=== PATIENT | female | born 1960 | race Caucasian/White ===

== ENCOUNTER 2021-01-18 13:55 | Inpatient (IN) ==
[2021-01-18] MEDS ORDERED: SODIUM CHLORIDE 0.9% 1,000 ML IV STA (14:26)
[2021-01-18 14:31] LABS: Basophils # 0.1 10*3/uL (0.0-0.2); Basophils % 0.2 % (0.0-0.8); Eosinophils % 0.1 % (0.00-10.9); Hematocrit 38.6 VOL% (35.7-47.0); Hemoglobin 13.3 GM/DL (12.0-16.0); Immature Granulocytes % 0.9 %; Immature Granulocytes Absolute 0.19 #; Lymphocytes # 0.5 10*3/uL (1.4-4.0); Lymphocytes % 2.2 % (21.3-54.2); Mean Corpuscular HGB Conc 34.5 GM/DL (32-36); Mean Corpuscular Volume 86.7 FL (87-102); Mean Platelet Volume 10.8 FL (9.6-12.0); Monocytes % 6.1 % (1.7-12.7); Neutrophils % 90.5 % (38.7-73.9); Platelet Count 144 T/CUMM (130-400); Red Blood Count 4.45 MC/CUMM (3.8-5.5); Red Cell Distribution Width 13.1 % (9.3-17.3); White Blood Count 20.7 T/CUMM (4-12)
[2021-01-18 14:42] LABS: Albumin 2.3 G/DL (3.4-5.0); Bilirubin,Total 0.5 MG/DL (0.2-1.0); Calcium 7.5 MG/DL (8.5-10.1); Osmolality,Calculated 260.8 MOS/KG (273-304); Total Protein 5.9 G/DL (5.0-7.5)
[2021-01-18 15:06] LABS: Bacteria,Urine Many /HPF (Few); Bilirubin,Urine Negative (Negative); Blood, Urine Moderate mg/dL (Negative); Glucose,Urine (UA) 50 mg/dL (Negative); Ketones,Urine 5 mg/dL (Negative); Nitrite,Urine Negative (Negative); Protein,Urine 100 MG/DL; RBC,Urine 30 /HPF (0-4); Squamous Epithelial Cell,Urine Few /HPF (0-10); Urine Appearance CLOUDY (Clear); Urine Color Yellow (Yellow); Urine Specific Gravity 1.017 (1.001-1.035); Urine Urobilinogen < 2.0 EU/DL (0.2-1.0); WBC,Urine 585 /HPF (0-6)
[2021-01-18 15:26] LABS: Lymphocytes 7 % (20-55); Segmented Neutrophils 91 % (50-85); Total Cells Counted 100
[2021-01-18 15:27] LABS: Hypochromasia 1+; Microcytosis 1+
[2021-01-18] MEDS ORDERED: MEROPENEM 500 MG in SODIUM CHLORIDE 0.9% 100 ML IV ONE (16:33)
[2021-01-18] MEDS ORDERED: ONDANSETRON 4 MG/2 ML VIAL IV PRN (17:12)
[2021-01-18] MEDS ORDERED: ACETAMINOPHEN 325 MG TABLET PO PRN (17:12)
[2021-01-18] MEDS ORDERED: SODIUM CHLORIDE 0.45% 1,000 ML IV SCH (17:30)
[2021-01-18] MEDS ORDERED: LOPERAMIDE 2 MG CAPSULE PO PRN (18:59)
[2021-01-18] MEDS ORDERED: SUCRALFATE 1 GM TABLET PO PRN (18:59)
[2021-01-18] MEDS ORDERED: MAGNESIUM HYDROXIDE SUSP 30 ML UDCUP PO PRN (18:59)
[2021-01-18] MEDS ORDERED: POLYETHYLENE GLYCOL POWDER 17 GM PACK PO PRN (18:59)
[2021-01-18] MEDS ORDERED: diphenhydrAMINE CAP 25 MG CAPSULE PO PRN (18:59)
[2021-01-18] MEDS: APIXABAN 5 MG TABLET PO SCH (21:06)
[2021-01-18] MEDS: hydrALAZINE 25 MG TABLET PO SCH (21:06)
[2021-01-18] MEDS: POTASSIUM CHLORIDE 20 MEQ TABLET PO SCH (21:06)
[2021-01-18] MEDS: DOCUSATE SODIUM 100 MG CAPSULE PO SCH (21:06)
[2021-01-18] MEDS: cycloSPORINE OPH EMUL 1 VIAL BOTH EYES SCH (21:07)
[2021-01-18] MEDS: TROSPIUM 20 MG PO SCH (21:07)
[2021-01-18] MEDS: NON-FORMULARY MEDICATION (Cran-Vitc-Mannose-Fos-Bromeln [Uti-Stat] 3,875 mg/30 mL Liquid) PO SCH (21:07)
[2021-01-18] MEDS: MEROPENEM 500 MG in SODIUM CHLORIDE 0.9% 100 ML IV SCH (22:22)
[2021-01-19] MEDS: MEROPENEM 500 MG in SODIUM CHLORIDE 0.9% 100 ML IV SCH ×3 (01:16→16:26)
[2021-01-19 03:28] LABS: Basophils % 0.2 % (0.0-0.8); Eosinophils # 0.1 10*3/uL (0.0-0.87); Eosinophils % 0.4 % (0.00-10.9); Hematocrit 38.4 VOL% (35.7-47.0); Hemoglobin 13.2 GM/DL (12.0-16.0); Immature Granulocytes Absolute 0.18 #; Lymphocytes # 0.7 10*3/uL (1.4-4.0); Lymphocytes % 3.4 % (21.3-54.2); Mean Corpuscular HGB Conc 34.4 GM/DL (32-36); Mean Corpuscular Volume 85.9 FL (87-102); Mean Platelet Volume 11.3 FL (9.6-12.0); Monocytes % 8.2 % (1.7-12.7); Neutrophils % 86.8 % (38.7-73.9); Platelet Count 139 T/CUMM (130-400); Red Blood Count 4.47 MC/CUMM (3.8-5.5); Red Cell Distribution Width 12.9 % (9.3-17.3); White Blood Count 18.9 T/CUMM (4-12)
[2021-01-19 03:52] LABS: Calcium 8.1 MG/DL (8.5-10.1); Osmolality,Calculated 259.6 MOS/KG (273-304); Potassium 4.3 MMOL/L (3.5-5.1)
[2021-01-19 04:10] LABS: Eosinophils 1 % (0-10); Lymphocytes 2 % (20-55); Platelet Estimate Normal; Segmented Neutrophils 94 % (50-85); Total Cells Counted 100
[2021-01-19] MEDS: LEVOTHYROXINE 125 MCG TABLET PO SCH (06:39)
[2021-01-19] MEDS: DESITIN 4OZ/NYSTATIN 15 GRAM MIXTURE PASTE TOP SCH ×2 (08:57→20:39)
[2021-01-19] MEDS: cycloSPORINE OPH EMUL 1 VIAL BOTH EYES SCH ×2 (08:59→20:35)
[2021-01-19] MEDS: LORATADINE 10 MG TABLET PO SCH (09:00)
[2021-01-19] MEDS: DOCUSATE SODIUM 100 MG CAPSULE PO SCH ×2 (09:00→20:35)
[2021-01-19] MEDS: POTASSIUM CHLORIDE 20 MEQ TABLET PO SCH ×2 (09:01→20:34)
[2021-01-19] MEDS: predniSONE 5 MG TABLET PO SCH (09:01)
[2021-01-19] MEDS: hydrALAZINE 25 MG TABLET PO SCH ×2 (09:01→20:35)
[2021-01-19] MEDS: APIXABAN 5 MG TABLET PO SCH ×2 (09:01→20:34)
[2021-01-19] MEDS: allopurinoL 300 MG TABLET PO SCH (09:01)
[2021-01-19] MEDS: PANTOPRAZOLE 40 MG TABLET PO SCH (09:01)
[2021-01-19] MEDS: AZILSARTAN MED CHLORTHALIDONE PO SCH (09:02)
[2021-01-19] MEDS: CALAZIME TOP SCH (09:02)
[2021-01-19] MEDS: SACCHAROMYCES BOULARDII 250 MG PO SCH (09:03)
[2021-01-19] MEDS: [UNRECOGNIZED DRUG - MIXTURE] TOP SCH (09:03)
[2021-01-19] MEDS: NON-FORMULARY MEDICATION (Ascorbic Acid-Vitamin E-Biotin [Hair, Skin, Nails With Biotin] 7 PO SCH (09:03)
[2021-01-19] MEDS: NON-FORMULARY MEDICATION (Cran-Vitc-Mannose-Fos-Bromeln [Uti-Stat] 3,875 mg/30 mL Liquid) PO SCH ×2 (09:03→20:39)
[2021-01-19] MEDS: TROSPIUM 20 MG PO SCH ×2 (09:04→20:39)
[2021-01-19] MEDS: SODIUM CHLORIDE 0.9% 1,000 ML IV SCH (16:26)
[2021-01-19] MEDS: LURASIDONE 80 MG PO SCH (17:34)
[2021-01-20] MEDS: MEROPENEM 500 MG in SODIUM CHLORIDE 0.9% 100 ML IV SCH ×3 (00:15→15:00)
[2021-01-20 04:29] LABS: Basophils % 0.3 % (0.0-0.8); Eosinophils # 0.1 10*3/uL (0.0-0.87); Eosinophils % 0.9 % (0.00-10.9); Hematocrit 39.4 VOL% (35.7-47.0); Hemoglobin 13.5 GM/DL (12.0-16.0); Immature Granulocytes % 1.1 %; Immature Granulocytes Absolute 0.15 #; Lymphocytes # 0.7 10*3/uL (1.4-4.0); Lymphocytes % 5.3 % (21.3-54.2); Mean Corpuscular HGB Conc 34.3 GM/DL (32-36); Mean Corpuscular Volume 86.4 FL (87-102); Mean Platelet Volume 11.1 FL (9.6-12.0); Monocytes % 9.9 % (1.7-12.7); Neutrophils % 82.5 % (38.7-73.9); Platelet Count 147 T/CUMM (130-400); Red Blood Count 4.56 MC/CUMM (3.8-5.5); Red Cell Distribution Width 13.1 % (9.3-17.3); White Blood Count 13.9 T/CUMM (4-12)
[2021-01-20 04:54] LABS: Calcium 8.1 MG/DL (8.5-10.1); Osmolality,Calculated 262.2 MOS/KG (273-304); Potassium 5.1 MMOL/L (3.5-5.1)
[2021-01-20] MEDS ORDERED: MAGNESIUM SULF RIDER 2 GM in PREMIX 1 EACH IV PRN (07:21)
[2021-01-20] MEDS: LEVOTHYROXINE 125 MCG TABLET PO SCH (07:26)
[2021-01-20] MEDS: cycloSPORINE OPH EMUL 1 VIAL BOTH EYES SCH ×2 (08:48→22:21)
[2021-01-20] MEDS: AZILSARTAN MED CHLORTHALIDONE PO SCH (08:51)
[2021-01-20] MEDS: hydrALAZINE 25 MG TABLET PO SCH ×2 (08:51→22:21)
[2021-01-20] MEDS: predniSONE 5 MG TABLET PO SCH (08:52)
[2021-01-20] MEDS: POTASSIUM CHLORIDE 20 MEQ TABLET PO SCH ×2 (08:52→22:21)
[2021-01-20] MEDS: LORATADINE 10 MG TABLET PO SCH (08:52)
[2021-01-20] MEDS: DOCUSATE SODIUM 100 MG CAPSULE PO SCH ×2 (08:52→22:21)
[2021-01-20] MEDS: allopurinoL 300 MG TABLET PO SCH (08:52)
[2021-01-20] MEDS: NON-FORMULARY MEDICATION (Ascorbic Acid-Vitamin E-Biotin [Hair, Skin, Nails With Biotin] 7 PO SCH (12:55)
[2021-01-20] MEDS: CALAZIME TOP SCH (12:55)
[2021-01-20] MEDS: APIXABAN 5 MG TABLET PO SCH ×2 (12:56→22:21)
[2021-01-20] MEDS: NON-FORMULARY MEDICATION (Cran-Vitc-Mannose-Fos-Bromeln [Uti-Stat] 3,875 mg/30 mL Liquid) PO SCH (12:56)
[2021-01-20] MEDS: PANTOPRAZOLE 40 MG TABLET PO SCH (12:59)
[2021-01-20] MEDS: [UNRECOGNIZED DRUG - MIXTURE] TOP SCH (12:59)
[2021-01-20] MEDS: DESITIN 4OZ/NYSTATIN 15 GRAM MIXTURE PASTE TOP SCH ×2 (13:00→22:21)
[2021-01-20] MEDS: SACCHAROMYCES BOULARDII 250 MG PO SCH (13:00)
[2021-01-20] MEDS: TROSPIUM 20 MG PO SCH (13:01)
[2021-01-20] MEDS: SODIUM CHLORIDE 0.9% 1,000 ML IV SCH ×2 (14:56→18:19)
[2021-01-20] MEDS: LURASIDONE 80 MG PO SCH ×2 (17:19→18:19)
[2021-01-21] MEDS: MEROPENEM 500 MG in SODIUM CHLORIDE 0.9% 100 ML IV SCH ×4 (00:21→16:32)
[2021-01-21] MEDS: TROSPIUM 20 MG PO SCH ×3 (01:25→21:16)
[2021-01-21] MEDS: NON-FORMULARY MEDICATION (Cran-Vitc-Mannose-Fos-Bromeln [Uti-Stat] 3,875 mg/30 mL Liquid) PO SCH ×2 (01:25→09:30)
[2021-01-21 03:48] LABS: Basophils # 0.1 10*3/uL (0.0-0.2); Basophils % 0.4 % (0.0-0.8); Eosinophils # 0.3 10*3/uL (0.0-0.87); Hematocrit 40.8 VOL% (35.7-47.0); Hemoglobin 13.4 GM/DL (12.0-16.0); Immature Granulocytes % 1.4 %; Immature Granulocytes Absolute 0.19 #; Lymphocytes # 1.4 10*3/uL (1.4-4.0); Lymphocytes % 10.1 % (21.3-54.2); Mean Corpuscular HGB Conc 32.8 GM/DL (32-36); Mean Corpuscular Volume 89.9 FL (87-102); Mean Platelet Volume 10.9 FL (9.6-12.0); Monocytes % 10.7 % (1.7-12.7); Neutrophils % 75.4 % (38.7-73.9); Platelet Count 182 T/CUMM (130-400); Red Blood Count 4.54 MC/CUMM (3.8-5.5); Red Cell Distribution Width 13.5 % (9.3-17.3)
[2021-01-21 04:07] LABS: Calcium 8.5 MG/DL (8.5-10.1); Osmolality,Calculated 260.1 MOS/KG (273-304); Potassium 5.6 MMOL/L (3.5-5.1)
[2021-01-21] MEDS: LEVOTHYROXINE 125 MCG TABLET PO SCH (06:55)
[2021-01-21] MEDS: allopurinoL 300 MG TABLET PO SCH (09:25)
[2021-01-21] MEDS: APIXABAN 5 MG TABLET PO SCH ×2 (09:25→21:14)
[2021-01-21] MEDS: DESITIN 4OZ/NYSTATIN 15 GRAM MIXTURE PASTE TOP SCH ×2 (09:25→21:56)
[2021-01-21] MEDS: PANTOPRAZOLE 40 MG TABLET PO SCH (09:25)
[2021-01-21] MEDS: DOCUSATE SODIUM 100 MG CAPSULE PO SCH ×2 (09:25→21:17)
[2021-01-21] MEDS: hydrALAZINE 25 MG TABLET PO SCH ×2 (09:25→21:14)
[2021-01-21] MEDS: LORATADINE 10 MG TABLET PO SCH (09:25)
[2021-01-21] MEDS: predniSONE 5 MG TABLET PO SCH (09:25)
[2021-01-21] MEDS: SODIUM CHLORIDE 0.9% 1,000 ML IV SCH ×2 (09:26→21:55)
[2021-01-21] MEDS: NON-FORMULARY MEDICATION (Ascorbic Acid-Vitamin E-Biotin [Hair, Skin, Nails With Biotin] 7 PO SCH (09:28)
[2021-01-21] MEDS: CALAZIME TOP SCH (09:29)
[2021-01-21] MEDS: [UNRECOGNIZED DRUG - MIXTURE] TOP SCH (09:30)
[2021-01-21] MEDS: POTASSIUM CHLORIDE 20 MEQ TABLET PO SCH (09:31)
[2021-01-21] MEDS: SACCHAROMYCES BOULARDII 250 MG PO SCH (09:31)
[2021-01-21] MEDS: AZILSARTAN MED CHLORTHALIDONE PO SCH (09:35)
[2021-01-21] MEDS: cycloSPORINE OPH EMUL 1 VIAL BOTH EYES SCH ×2 (09:35→21:14)
[2021-01-21] MEDS: MAGNESIUM SULF RIDER 4 GM in PREMIX 1 EACH IV PRN (09:49)
[2021-01-21] MEDS: LACTOBACILLUS ACIDOPHILUS/BULGARICUS CAPLET PO SCH (13:52)
[2021-01-21] MEDS: LURASIDONE 80 MG PO SCH ×2 (16:32→21:15)
[2021-01-22] MEDS: MEROPENEM 500 MG in SODIUM CHLORIDE 0.9% 100 ML IV SCH ×3 (01:00→16:11)
[2021-01-22] MEDS: LEVOTHYROXINE 125 MCG TABLET PO SCH (05:37)
[2021-01-22 05:52] LABS: Basophils # 0.1 10*3/uL (0.0-0.2); Basophils % 0.6 % (0.0-0.8); Eosinophils # 0.5 10*3/uL (0.0-0.87); Eosinophils % 4.2 % (0.00-10.9); Hematocrit 38.8 VOL% (35.7-47.0); Hemoglobin 13.1 GM/DL (12.0-16.0); Immature Granulocytes % 1.6 %; Immature Granulocytes Absolute 0.17 #; Lymphocytes # 1.7 10*3/uL (1.4-4.0); Lymphocytes % 15.9 % (21.3-54.2); Mean Corpuscular HGB Conc 33.8 GM/DL (32-36); Mean Corpuscular Volume 88.2 FL (87-102); Mean Platelet Volume 10.2 FL (9.6-12.0); Monocytes % 9.3 % (1.7-12.7); Neutrophils % 68.4 % (38.7-73.9); Platelet Count 228 T/CUMM (130-400); Red Cell Distribution Width 13.3 % (9.3-17.3); White Blood Count 10.9 T/CUMM (4-12)
[2021-01-22 06:09] LABS: Calcium 8.3 MG/DL (8.5-10.1); Osmolality,Calculated 268.2 MOS/KG (273-304); Potassium 4.9 MMOL/L (3.5-5.1)
[2021-01-22] MEDS: cycloSPORINE OPH EMUL 1 VIAL BOTH EYES SCH ×2 (08:24→21:08)
[2021-01-22] MEDS: LACTOBACILLUS ACIDOPHILUS/BULGARICUS CAPLET PO SCH (08:24)
[2021-01-22] MEDS: PANTOPRAZOLE 40 MG TABLET PO SCH (08:24)
[2021-01-22] MEDS: predniSONE 5 MG TABLET PO SCH (08:24)
[2021-01-22] MEDS: SPIRONOLACTONE 25 MG TABLET PO SCH (08:24)
[2021-01-22] MEDS: DOCUSATE SODIUM 100 MG CAPSULE PO SCH ×2 (08:24→21:09)
[2021-01-22] MEDS: APIXABAN 5 MG TABLET PO SCH ×2 (08:24→21:08)
[2021-01-22] MEDS: hydrALAZINE 25 MG TABLET PO SCH ×2 (08:24→21:08)
[2021-01-22] MEDS: allopurinoL 300 MG TABLET PO SCH (08:24)
[2021-01-22] MEDS: LORATADINE 10 MG TABLET PO SCH (08:24)
[2021-01-22] MEDS: AZILSARTAN MED CHLORTHALIDONE PO SCH (08:25)
[2021-01-22] MEDS: DESITIN 4OZ/NYSTATIN 15 GRAM MIXTURE PASTE TOP SCH ×2 (08:25→21:08)
[2021-01-22] MEDS: TROSPIUM 20 MG PO SCH ×2 (08:25→21:10)
[2021-01-22] MEDS: NEBIVOLOL 5 MG TABLET PO SCH (13:30)
[2021-01-22] MEDS ORDERED: TUBERCULIN SKIN TEST 0.1 ML SYRINGE INTRADERM ONE (14:52)
[2021-01-22] MEDS: LURASIDONE 80 MG PO SCH (16:11)
[2021-01-22] MEDS: SODIUM CHLORIDE 0.9% 1,000 ML IV SCH (16:55)
[2021-01-23] MEDS: MEROPENEM 500 MG in SODIUM CHLORIDE 0.9% 100 ML IV SCH ×2 (01:00→09:13)
[2021-01-23 05:39] LABS: Basophils # 0.1 10*3/uL (0.0-0.2); Basophils % 0.6 % (0.0-0.8); Eosinophils # 0.6 10*3/uL (0.0-0.87); Eosinophils % 5.5 % (0.00-10.9); Hematocrit 41.1 VOL% (35.7-47.0); Hemoglobin 13.4 GM/DL (12.0-16.0); Immature Granulocytes % 1.5 %; Immature Granulocytes Absolute 0.17 #; Lymphocytes # 2.3 10*3/uL (1.4-4.0); Lymphocytes % 20.4 % (21.3-54.2); Mean Corpuscular HGB Conc 32.6 GM/DL (32-36); Mean Corpuscular Volume 90.5 FL (87-102); Mean Platelet Volume 10.1 FL (9.6-12.0); Monocytes % 8.6 % (1.7-12.7); Neutrophils % 63.4 % (38.7-73.9); Platelet Count 307 T/CUMM (130-400); Red Blood Count 4.54 MC/CUMM (3.8-5.5); Red Cell Distribution Width 13.2 % (9.3-17.3); White Blood Count 11.2 T/CUMM (4-12)
[2021-01-23 05:55] LABS: Calcium 8.8 MG/DL (8.5-10.1); Osmolality,Calculated 265.4 MOS/KG (273-304); Potassium 4.5 MMOL/L (3.5-5.1)
[2021-01-23] MEDS: LEVOTHYROXINE 125 MCG TABLET PO SCH (06:28)
[2021-01-23] MEDS: allopurinoL 300 MG TABLET PO SCH (09:09)
[2021-01-23] MEDS: hydrALAZINE 25 MG TABLET PO SCH ×2 (09:09→20:55)
[2021-01-23] MEDS: APIXABAN 5 MG TABLET PO SCH ×2 (09:10→20:55)
[2021-01-23] MEDS: NEBIVOLOL 5 MG TABLET PO SCH (09:10)
[2021-01-23] MEDS: LORATADINE 10 MG TABLET PO SCH (09:10)
[2021-01-23] MEDS: DOCUSATE SODIUM 100 MG CAPSULE PO SCH ×2 (09:10→20:55)
[2021-01-23] MEDS: predniSONE 5 MG TABLET PO SCH (09:10)
[2021-01-23] MEDS: PANTOPRAZOLE 40 MG TABLET PO SCH (09:10)
[2021-01-23] MEDS: LACTOBACILLUS ACIDOPHILUS/BULGARICUS CAPLET PO SCH (09:10)
[2021-01-23] MEDS: AZILSARTAN MED CHLORTHALIDONE PO SCH (09:10)
[2021-01-23] MEDS: cycloSPORINE OPH EMUL 1 VIAL BOTH EYES SCH ×2 (09:13→20:55)
[2021-01-23] MEDS: TROSPIUM 20 MG PO SCH ×2 (09:13→22:22)
[2021-01-23] MEDS: SODIUM CHLORIDE 0.9% 1,000 ML IV SCH ×2 (12:53→20:56)
[2021-01-23] MEDS: MAGNESIUM SULF RIDER 4 GM in PREMIX 1 EACH IV PRN (14:50)
[2021-01-23] MEDS: LURASIDONE 80 MG PO SCH (17:05)
[2021-01-23] MEDS: POLYETHYLENE GLYCOL POWDER 17 GM PACK PO SCH (17:39)
[2021-01-23] MEDS ORDERED: MAGNESIUM SULF RIDER 2 GM in PREMIX 1 EACH IV ONE (18:44)
[2021-01-23] MEDS: ALBUMIN 25% 25 GM in PREMIX 1 EACH IV SCH (20:55)
[2021-01-24] MEDS: LEVOTHYROXINE 125 MCG TABLET PO SCH (05:24)
[2021-01-24] MEDS: ALBUMIN 25% 25 GM in PREMIX 1 EACH IV SCH ×3 (05:37→21:19)
[2021-01-24 06:03] LABS: Basophils # 0.1 10*3/uL (0.0-0.2); Basophils % 0.6 % (0.0-0.8); Eosinophils # 0.6 10*3/uL (0.0-0.87); Eosinophils % 5.8 % (0.00-10.9); Hematocrit 39.7 VOL% (35.7-47.0); Hemoglobin 12.8 GM/DL (12.0-16.0); Immature Granulocytes % 1.3 %; Immature Granulocytes Absolute 0.13 #; Lymphocytes # 2.4 10*3/uL (1.4-4.0); Lymphocytes % 23.5 % (21.3-54.2); Mean Corpuscular HGB Conc 32.2 GM/DL (32-36); Mean Corpuscular Volume 91.1 FL (87-102); Mean Platelet Volume 9.9 FL (9.6-12.0); Monocytes % 8.5 % (1.7-12.7); Neutrophils % 60.3 % (38.7-73.9); Platelet Count 345 T/CUMM (130-400); Red Blood Count 4.36 MC/CUMM (3.8-5.5); Red Cell Distribution Width 13.1 % (9.3-17.3); White Blood Count 10.1 T/CUMM (4-12)
[2021-01-24 06:26] LABS: Albumin 2.5 G/DL (3.4-5.0); Bilirubin,Total 1.3 MG/DL (0.2-1.0); Calcium 9.1 MG/DL (8.5-10.1); Osmolality,Calculated 264.4 MOS/KG (273-304); Potassium 4.5 MMOL/L (3.5-5.1); Total Protein 6.1 G/DL (6.4-8.2)
[2021-01-24] MEDS: SODIUM CHLORIDE 0.9% 1,000 ML IV SCH ×2 (08:35→17:18)
[2021-01-24] MEDS: APIXABAN 5 MG TABLET PO SCH ×2 (08:36→21:19)
[2021-01-24] MEDS: hydrALAZINE 25 MG TABLET PO SCH (08:36)
[2021-01-24] MEDS: NEBIVOLOL 5 MG TABLET PO SCH (08:36)
[2021-01-24] MEDS: cycloSPORINE OPH EMUL 1 VIAL BOTH EYES SCH ×2 (08:36→21:19)
[2021-01-24] MEDS: allopurinoL 300 MG TABLET PO SCH (08:36)
[2021-01-24] MEDS: PANTOPRAZOLE 40 MG TABLET PO SCH (08:36)
[2021-01-24] MEDS: LACTOBACILLUS ACIDOPHILUS/BULGARICUS CAPLET PO SCH (08:36)
[2021-01-24] MEDS: POLYETHYLENE GLYCOL POWDER 17 GM PACK PO SCH (08:36)
[2021-01-24] MEDS: DOCUSATE SODIUM 100 MG CAPSULE PO SCH ×2 (08:36→21:20)
[2021-01-24] MEDS: predniSONE 5 MG TABLET PO SCH (08:37)
[2021-01-24] MEDS: AZILSARTAN MED CHLORTHALIDONE PO SCH (08:37)
[2021-01-24] MEDS: LORATADINE 10 MG TABLET PO SCH (08:37)
[2021-01-24] MEDS: TROSPIUM 20 MG PO SCH ×2 (08:37→21:20)
[2021-01-24] MEDS ORDERED: LORazepam 2 MG/1 ML VIAL IV ONE (12:30)
[2021-01-24] MEDS ORDERED: traMADol 50 MG TABLET PO PRN (14:24)
[2021-01-24] MEDS: LURASIDONE 80 MG PO SCH (17:17)
[2021-01-24] MEDS: LIDOCAINE 5% PATCH TRANSDERM SCH (17:18)
[2021-01-25 05:07] LABS: Basophils # 0.1 10*3/uL (0.0-0.2); Basophils % 0.8 % (0.0-0.8); Eosinophils # 0.5 10*3/uL (0.0-0.87); Eosinophils % 5.5 % (0.00-10.9); Hematocrit 38.7 VOL% (35.7-47.0); Hemoglobin 12.7 GM/DL (12.0-16.0); Immature Granulocytes % 1.4 %; Immature Granulocytes Absolute 0.12 #; Lymphocytes # 2.2 10*3/uL (1.4-4.0); Lymphocytes % 25.7 % (21.3-54.2); Mean Corpuscular HGB Conc 32.8 GM/DL (32-36); Mean Platelet Volume 9.6 FL (9.6-12.0); Monocytes % 6.7 % (1.7-12.7); Neutrophils % 59.9 % (38.7-73.9); Platelet Count 344 T/CUMM (130-400); Red Blood Count 4.35 MC/CUMM (3.8-5.5); Red Cell Distribution Width 12.9 % (9.3-17.3); White Blood Count 8.6 T/CUMM (4-12)
[2021-01-25 05:34] LABS: Albumin 3.6 G/DL (3.4-5.0); Bilirubin,Total 0.7 MG/DL (0.2-1.0); Calcium 9.1 MG/DL (8.5-10.1); Osmolality,Calculated 266.2 MOS/KG (273-304); Potassium 4.1 MMOL/L (3.5-5.1); Total Protein 6.6 G/DL (6.4-8.2)
[2021-01-25] MEDS: SODIUM CHLORIDE 0.9% 1,000 ML IV SCH (06:09)
[2021-01-25] MEDS: ALBUMIN 25% 25 GM in PREMIX 1 EACH IV SCH ×3 (06:09→20:02)
[2021-01-25] MEDS: LEVOTHYROXINE 125 MCG TABLET PO SCH (06:09)
[2021-01-25] MEDS: cycloSPORINE OPH EMUL 1 VIAL BOTH EYES SCH ×2 (09:44→20:02)
[2021-01-25] MEDS: POLYETHYLENE GLYCOL POWDER 17 GM PACK PO SCH ×2 (09:44→20:00)
[2021-01-25] MEDS: LIDOCAINE 5% PATCH TRANSDERM SCH (09:45)
[2021-01-25] MEDS: DOCUSATE SODIUM 100 MG CAPSULE PO SCH ×3 (09:45→20:33)
[2021-01-25] MEDS: LORATADINE 10 MG TABLET PO SCH (09:45)
[2021-01-25] MEDS: LACTOBACILLUS ACIDOPHILUS/BULGARICUS CAPLET PO SCH (09:45)
[2021-01-25] MEDS: SPIRONOLACTONE 25 MG TABLET PO SCH (09:45)
[2021-01-25] MEDS: NEBIVOLOL 5 MG TABLET PO SCH (09:45)
[2021-01-25] MEDS: allopurinoL 300 MG TABLET PO SCH (09:45)
[2021-01-25] MEDS: PANTOPRAZOLE 40 MG TABLET PO SCH (09:45)
[2021-01-25] MEDS: TROSPIUM 20 MG PO SCH ×2 (09:46→20:33)
[2021-01-25] MEDS: AZILSARTAN MED CHLORTHALIDONE PO SCH (09:53)
[2021-01-25] MEDS: LURASIDONE 80 MG PO SCH (16:22)
[2021-01-26] MEDS: SODIUM CHLORIDE 0.9% 1,000 ML IV SCH ×3 (04:27→16:47)
[2021-01-26] MEDS: ALBUMIN 25% 25 GM in PREMIX 1 EACH IV SCH ×3 (04:29→20:41)
[2021-01-26] MEDS: LEVOTHYROXINE 125 MCG TABLET PO SCH (05:32)
[2021-01-26] MEDS: PANTOPRAZOLE 40 MG TABLET PO SCH (09:29)
[2021-01-26] MEDS: LACTOBACILLUS ACIDOPHILUS/BULGARICUS CAPLET PO SCH (09:29)
[2021-01-26] MEDS: allopurinoL 300 MG TABLET PO SCH (09:29)
[2021-01-26] MEDS: NEBIVOLOL 5 MG TABLET PO SCH (09:30)
[2021-01-26] MEDS: LORATADINE 10 MG TABLET PO SCH (09:30)
[2021-01-26] MEDS: DOCUSATE SODIUM 100 MG CAPSULE PO SCH ×2 (09:30→20:55)
[2021-01-26] MEDS: LIDOCAINE 5% PATCH TRANSDERM SCH (09:36)
[2021-01-26] MEDS: cycloSPORINE OPH EMUL 1 VIAL BOTH EYES SCH ×2 (09:38→20:55)
[2021-01-26] MEDS: AZILSARTAN MED CHLORTHALIDONE PO SCH (09:39)
[2021-01-26] MEDS: TROSPIUM 20 MG PO SCH ×2 (09:40→20:55)
[2021-01-26] MEDS: LURASIDONE 80 MG PO SCH (16:47)
[2021-01-27] MEDS: SODIUM CHLORIDE 0.9% 1,000 ML IV SCH ×3 (02:14→21:54)
[2021-01-27] MEDS: ALBUMIN 25% 25 GM in PREMIX 1 EACH IV SCH ×3 (05:21→21:35)
[2021-01-27] MEDS: LEVOTHYROXINE 125 MCG TABLET PO SCH (05:52)
[2021-01-27 06:19] LABS: Basophils # 0.1 10*3/uL (0.0-0.2); Basophils % 0.8 % (0.0-0.8); Eosinophils # 0.5 10*3/uL (0.0-0.87); Eosinophils % 4.9 % (0.00-10.9); Hematocrit 36.6 VOL% (35.7-47.0); Hemoglobin 12.1 GM/DL (12.0-16.0); Immature Granulocytes % 1.1 %; Lymphocytes # 1.7 10*3/uL (1.4-4.0); Lymphocytes % 18.5 % (21.3-54.2); Mean Corpuscular HGB Conc 33.1 GM/DL (32-36); Mean Corpuscular Volume 89.5 FL (87-102); Mean Platelet Volume 9.9 FL (9.6-12.0); Monocytes % 6.4 % (1.7-12.7); Neutrophils % 68.3 % (38.7-73.9); Platelet Count 293 T/CUMM (130-400); Red Blood Count 4.09 MC/CUMM (3.8-5.5); Red Cell Distribution Width 12.9 % (9.3-17.3); White Blood Count 9.2 T/CUMM (4-12)
[2021-01-27 06:56] LABS: Albumin 3.9 G/DL (3.4-5.0); Bilirubin,Total 0.7 MG/DL (0.2-1.0); Osmolality,Calculated 263.4 MOS/KG (273-304); Potassium 3.6 MMOL/L (3.5-5.1); Total Protein 6.5 G/DL (6.4-8.2)
[2021-01-27] MEDS: AZILSARTAN MED CHLORTHALIDONE PO SCH (08:18)
[2021-01-27] MEDS: TROSPIUM 20 MG PO SCH ×2 (08:18→20:12)
[2021-01-27] MEDS: PANTOPRAZOLE 40 MG TABLET PO SCH (08:19)
[2021-01-27] MEDS: DOCUSATE SODIUM 100 MG CAPSULE PO SCH ×2 (08:19→20:12)
[2021-01-27] MEDS: LACTOBACILLUS ACIDOPHILUS/BULGARICUS CAPLET PO SCH (08:19)
[2021-01-27] MEDS: NEBIVOLOL 5 MG TABLET PO SCH (08:19)
[2021-01-27] MEDS: LIDOCAINE 5% PATCH TRANSDERM SCH (08:20)
[2021-01-27] MEDS: LORATADINE 10 MG TABLET PO SCH (08:20)
[2021-01-27] MEDS: allopurinoL 300 MG TABLET PO SCH (08:25)
[2021-01-27] MEDS: cycloSPORINE OPH EMUL 1 VIAL BOTH EYES SCH ×2 (08:25→21:35)
[2021-01-27] MEDS ORDERED: POLYETHYLENE GLYCOL POWDER 255 GM BOTTLE PO ONE ×2 (15:00→18:00)
[2021-01-27] MEDS: LURASIDONE 80 MG PO SCH (16:14)
[2021-01-27] MEDS ORDERED: MAGNESIUM CITRATE 300 ML BOTTLE PO ONE (20:45)
[2021-01-28] MEDS ORDERED: MAGNESIUM CITRATE 300 ML BOTTLE PO ONE (05:00)
[2021-01-28] MEDS: LEVOTHYROXINE 125 MCG TABLET PO SCH (05:16)
[2021-01-28] MEDS: ALBUMIN 25% 25 GM in PREMIX 1 EACH IV SCH ×3 (05:16→20:27)
[2021-01-28 05:31] LABS: Basophils # 0.1 10*3/uL (0.0-0.2); Basophils % 0.6 % (0.0-0.8); Eosinophils # 0.6 10*3/uL (0.0-0.87); Eosinophils % 5.5 % (0.00-10.9); Hematocrit 37.2 VOL% (35.7-47.0); Hemoglobin 12.3 GM/DL (12.0-16.0); Immature Granulocytes % 0.8 %; Immature Granulocytes Absolute 0.08 #; Lymphocytes # 1.7 10*3/uL (1.4-4.0); Lymphocytes % 17.2 % (21.3-54.2); Mean Corpuscular HGB Conc 33.1 GM/DL (32-36); Mean Corpuscular Volume 89.2 FL (87-102); Mean Platelet Volume 9.6 FL (9.6-12.0); Monocytes % 6.4 % (1.7-12.7); Neutrophils % 69.5 % (38.7-73.9); Platelet Count 297 T/CUMM (130-400); Red Blood Count 4.17 MC/CUMM (3.8-5.5)
[2021-01-28 05:45] LABS: Calcium 8.7 MG/DL (8.5-10.1)
[2021-01-28 05:50] LABS: INR 1.1; PT Patient Result 11.9 SECS (9.8-11.9)
[2021-01-28] MEDS ORDERED: POLYETHYLENE GLYCOL POWDER 255 GM BOTTLE PO ONE (08:00)
[2021-01-28] MEDS: SODIUM CHLORIDE 0.9% 1,000 ML IV SCH ×2 (09:31→21:30)
[2021-01-28] MEDS: PANTOPRAZOLE 40 MG TABLET PO SCH (09:33)
[2021-01-28] MEDS: LORATADINE 10 MG TABLET PO SCH (09:33)
[2021-01-28] MEDS: DOCUSATE SODIUM 100 MG CAPSULE PO SCH (09:33)
[2021-01-28] MEDS: NEBIVOLOL 5 MG TABLET PO SCH (09:33)
[2021-01-28] MEDS: LACTOBACILLUS ACIDOPHILUS/BULGARICUS CAPLET PO SCH (09:33)
[2021-01-28] MEDS: LIDOCAINE 5% PATCH TRANSDERM SCH (09:33)
[2021-01-28] MEDS: cycloSPORINE OPH EMUL 1 VIAL BOTH EYES SCH ×2 (09:34→20:26)
[2021-01-28] MEDS: TROSPIUM 20 MG PO SCH ×2 (09:34→20:27)
[2021-01-28] MEDS: allopurinoL 300 MG TABLET PO SCH (09:34)
[2021-01-28] MEDS: AZILSARTAN MED CHLORTHALIDONE PO SCH (09:40)
[2021-01-28] MEDS ORDERED: CHLORTHALIDONE 25 MG TABLET PO SCH (11:00)
[2021-01-28] MEDS: POTASSIUM CHLORIDE RIDER 10 MEQ in PREMIX 1 EACH IV SCH ×3 (11:11→18:33)
[2021-01-28] MEDS: LOSARTAN 25 MG TABLET PO SCH (11:18)
[2021-01-28] MEDS: LACTATED RINGERS 1,000 ML IV SCH (12:40)
[2021-01-28] MEDS ORDERED: propofoL 200 MG/20 ML VIAL IV ONE (14:14)
[2021-01-28] MEDS ORDERED: LIDOCAINE 2% 5 ML VIAL ONE (14:14)
[2021-01-28] MEDS: LURASIDONE 80 MG PO SCH (17:51)
[2021-01-28] MEDS ORDERED: POTASSIUM CHLORIDE RIDER 10 MEQ in PREMIX 1 EACH IV SCH (18:00)
[2021-01-28] MEDS ORDERED: POTASSIUM CHLORIDE 20 MEQ TABLET PO ONE (22:45)
[2021-01-29] MEDS: LEVOTHYROXINE 125 MCG TABLET PO SCH (05:39)
[2021-01-29 05:49] LABS: Basophils # 0.1 10*3/uL (0.0-0.2); Basophils % 0.9 % (0.0-0.8); Eosinophils # 0.7 10*3/uL (0.0-0.87); Eosinophils % 7.3 % (0.00-10.9); Hematocrit 34.9 VOL% (35.7-47.0); Hemoglobin 11.5 GM/DL (12.0-16.0); Immature Granulocytes % 0.7 %; Immature Granulocytes Absolute 0.06 #; Lymphocytes # 1.4 10*3/uL (1.4-4.0); Lymphocytes % 16.1 % (21.3-54.2); Mean Corpuscular Volume 89.5 FL (87-102); Mean Platelet Volume 9.9 FL (9.6-12.0); Monocytes % 7.1 % (1.7-12.7); Neutrophils % 67.9 % (38.7-73.9); Platelet Count 272 T/CUMM (130-400); Red Cell Distribution Width 13.1 % (9.3-17.3); White Blood Count 8.9 T/CUMM (4-12)
[2021-01-29 06:06] LABS: Albumin 4.3 G/DL (3.4-5.0); Bilirubin,Total 1.1 MG/DL (0.2-1.0); Calcium 8.9 MG/DL (8.5-10.1); Osmolality,Calculated 269.1 MOS/KG (273-304); Potassium 2.7 MMOL/L (3.5-5.1); Total Protein 6.3 G/DL (6.4-8.2)
[2021-01-29] MEDS ORDERED: POTASSIUM CHLORIDE 20 MEQ TABLET PO PRN (07:00)
[2021-01-29] MEDS: LACTATED RINGERS 1,000 ML IV SCH (08:33)
[2021-01-29] MEDS: SODIUM CHLORIDE 0.9% 1,000 ML IV SCH ×2 (08:33→17:39)
[2021-01-29] MEDS: APIXABAN 5 MG TABLET PO SCH ×2 (08:35→20:42)
[2021-01-29] MEDS: LOSARTAN 25 MG TABLET PO SCH (08:35)
[2021-01-29] MEDS: NEBIVOLOL 5 MG TABLET PO SCH (08:35)
[2021-01-29] MEDS: LINACLOTIDE 145 MCG CAPSULE PO SCH (08:37)
[2021-01-29] MEDS: SPIRONOLACTONE 25 MG TABLET PO SCH (08:37)
[2021-01-29] MEDS: LIDOCAINE 5% PATCH TRANSDERM SCH (08:37)
[2021-01-29] MEDS: LORATADINE 10 MG TABLET PO SCH (08:37)
[2021-01-29] MEDS: PANTOPRAZOLE 40 MG TABLET PO SCH (08:37)
[2021-01-29] MEDS: LACTOBACILLUS ACIDOPHILUS/BULGARICUS CAPLET PO SCH (08:37)
[2021-01-29] MEDS: cycloSPORINE OPH EMUL 1 VIAL BOTH EYES SCH ×2 (08:38→20:41)
[2021-01-29] MEDS: TROSPIUM 20 MG PO SCH ×2 (08:38→20:41)
[2021-01-29] MEDS: allopurinoL 300 MG TABLET PO SCH (08:38)
[2021-01-29] MEDS ORDERED: POTASSIUM CHLORIDE RIDER 10 MEQ in PREMIX 1 EACH IV PRN (17:04)
[2021-01-29] MEDS: LURASIDONE 80 MG PO SCH (17:27)
[2021-01-29] MEDS ORDERED: POTASSIUM CHLORIDE INJ 50 MEQ in SODIUM CHLORIDE 0.9% 500 ML IV ONE (17:30)
[2021-01-30 05:41] LABS: Basophils # 0.1 10*3/uL (0.0-0.2); Basophils % 0.6 % (0.0-0.8); Eosinophils # 0.6 10*3/uL (0.0-0.87); Eosinophils % 7.2 % (0.00-10.9); Hematocrit 35.1 VOL% (35.7-47.0); Hemoglobin 11.8 GM/DL (12.0-16.0); Immature Granulocytes % 0.5 %; Immature Granulocytes Absolute 0.04 #; Lymphocytes # 1.3 10*3/uL (1.4-4.0); Mean Corpuscular HGB Conc 33.6 GM/DL (32-36); Mean Platelet Volume 9.7 FL (9.6-12.0); Monocytes % 8.1 % (1.7-12.7); Neutrophils % 66.6 % (38.7-73.9); Platelet Count 252 T/CUMM (130-400); Red Cell Distribution Width 13.3 % (9.3-17.3); White Blood Count 7.8 T/CUMM (4-12)
[2021-01-30] MEDS: LEVOTHYROXINE 125 MCG TABLET PO SCH (05:51)
[2021-01-30 05:57] LABS: Albumin 3.9 G/DL (3.4-5.0); Bilirubin,Total 0.8 MG/DL (0.2-1.0); Calcium 8.9 MG/DL (8.5-10.1); Osmolality,Calculated 272.8 MOS/KG (273-304); Potassium 3.3 MMOL/L (3.5-5.1); Total Protein 6.2 G/DL (6.4-8.2)
[2021-01-30] MEDS: LINACLOTIDE 145 MCG CAPSULE PO SCH (07:30)
[2021-01-30] MEDS ORDERED: LACTATED RINGERS 1,000 ML IV SCH (08:00)
[2021-01-30] MEDS ORDERED: MAGNESIUM SULF RIDER 2 GM in PREMIX 1 EACH IV ONE (08:31)
[2021-01-30] MEDS: APIXABAN 5 MG TABLET PO SCH ×2 (08:34→21:38)
[2021-01-30] MEDS: NEBIVOLOL 5 MG TABLET PO SCH (08:34)
[2021-01-30] MEDS: OLMESARTAN 20 MG TABLET PO SCH (08:34)
[2021-01-30] MEDS: allopurinoL 300 MG TABLET PO SCH (09:00)
[2021-01-30] MEDS: TROSPIUM 20 MG PO SCH ×2 (09:00→20:37)
[2021-01-30] MEDS: PANTOPRAZOLE 40 MG TABLET PO SCH (09:00)
[2021-01-30] MEDS: LORATADINE 10 MG TABLET PO SCH (09:00)
[2021-01-30] MEDS: LACTOBACILLUS ACIDOPHILUS/BULGARICUS CAPLET PO SCH (09:00)
[2021-01-30] MEDS: LIDOCAINE 5% PATCH TRANSDERM SCH (09:00)
[2021-01-30] MEDS: cycloSPORINE OPH EMUL 1 VIAL BOTH EYES SCH ×2 (09:00→21:38)
[2021-01-30] MEDS ORDERED: LIDOCAINE 2% 5 ML VIAL ONE (15:10)
[2021-01-30] MEDS ORDERED: propofoL 200 MG/20 ML VIAL IV ONE (15:10)
[2021-01-30] MEDS ORDERED: ONDANSETRON 4 MG/2 ML VIAL ONE (15:11)
[2021-01-30] MEDS: LURASIDONE 80 MG PO SCH (17:50)
[2021-01-31 05:23] LABS: Basophils # 0.1 10*3/uL (0.0-0.2); Basophils % 0.9 % (0.0-0.8); Eosinophils # 0.5 10*3/uL (0.0-0.87); Eosinophils % 5.8 % (0.00-10.9); Hematocrit 37.7 VOL% (35.7-47.0); Hemoglobin 12.1 GM/DL (12.0-16.0); Immature Granulocytes % 0.6 %; Immature Granulocytes Absolute 0.06 #; Lymphocytes # 1.6 10*3/uL (1.4-4.0); Lymphocytes % 16.8 % (21.3-54.2); Mean Corpuscular HGB Conc 32.1 GM/DL (32-36); Mean Platelet Volume 10.6 FL (9.6-12.0); Monocytes % 8.2 % (1.7-12.7); Neutrophils % 67.7 % (38.7-73.9); Platelet Count 245 T/CUMM (130-400); Red Cell Distribution Width 13.2 % (9.3-17.3); White Blood Count 9.4 T/CUMM (4-12)
[2021-01-31] MEDS: LEVOTHYROXINE 125 MCG TABLET PO SCH (05:28)
[2021-01-31 05:40] LABS: Calcium 9.2 MG/DL (8.5-10.1); Osmolality,Calculated 266.2 MOS/KG (273-304); Potassium 2.9 MMOL/L (3.5-5.1)
[2021-01-31] MEDS: cycloSPORINE OPH EMUL 1 VIAL BOTH EYES SCH (08:53)
[2021-01-31] MEDS: LINACLOTIDE 145 MCG CAPSULE PO SCH (08:55)
[2021-01-31] MEDS: OLMESARTAN 20 MG TABLET PO SCH (08:56)
[2021-01-31] MEDS: NEBIVOLOL 5 MG TABLET PO SCH (08:57)
[2021-01-31] MEDS: allopurinoL 300 MG TABLET PO SCH (08:57)
[2021-01-31] MEDS: PANTOPRAZOLE 40 MG TABLET PO SCH (08:57)
[2021-01-31] MEDS: LORATADINE 10 MG TABLET PO SCH (08:58)
[2021-01-31] MEDS: LIDOCAINE 5% PATCH TRANSDERM SCH (08:59)
[2021-01-31] MEDS: LACTOBACILLUS ACIDOPHILUS/BULGARICUS CAPLET PO SCH (08:59)
[2021-01-31] MEDS: TROSPIUM 20 MG PO SCH (09:00)
[2021-01-31] MEDS: APIXABAN 5 MG TABLET PO SCH (09:01)
[2021-01-31 11:58] VITALS: BP 140/68
[2021-01-31] MEDS ORDERED: POTASSIUM CHLORIDE 20 MEQ TABLET PO SCH (12:00)
[2021-01-31] MEDS ORDERED: MAGNESIUM CHLORIDE 64 MG TABLET PO SCH (21:00)
== END 2021-01-31 15:30 | DRG 392 ==
LOC: N.ED 13:55 → SUATTDRO 17:12 → N.EDINP 17:12 → N.5E 18:12
PROVIDERS: ADMIT Internal Medicine; ATTEND Hospitalist